=== PATIENT | male | born 2000 | race Caucasian/White ===

== ENCOUNTER 2018-05-10 15:48 | Emergency (ER) | payer SELFPAY ==
[~2018-05-10] VITALS: Ht 180.3 cm; Wt 120.5 kg
[2018-05-10 15:49] VITALS: BP 142/83
[2018-05-10] MEDS ORDERED: PENI250T57 PO (16:07)
[2018-05-10] MEDS ORDERED: PENICILLIN V POTASSIUM 500 MG TAB PO ONE (16:15)
[2018-05-10] MEDS ORDERED: IBUPROFEN 800 MG TAB PO ONE (16:15)
== END 2018-05-10 16:22 | disposition home or self-care (01) ==
LOC: M ED 15:48
DX: K04.7 Periapical abscess without sinus (principal)